=== PATIENT | female | born 2000 | race Caucasian/White ===

== ENCOUNTER 2022-11-22 18:47 | Emergency (ER) | payer BC, SELFPAY ==
[2022-11-22 19:10] VITALS: BP 121/82; PULSE 127; RESP 20; TEMP 37.3; O2SAT 99
--- NOTE | 2022-11-22 19:30 | ED.GENADULT ---
HPI - General Adult General Chief complaint: Abdominal Pain Stated complaint: Left Earache and Abdominal Pain Time Seen by Provider: 11/22/22 19:30 Source: patient, RN notes reviewed and old records reviewed Mode of arrival: ambulatory Limitations: no limitations History of Present Illness HPI narrative: 22 YEAR OLD FEMALE WHO PRESENTS TO [facility] WITH COMPLAINTS OF fever on Wednesday and some abdominal discomfort. Patient reports that she she got a flu shot on and is attributing possible side effects from flu shot. Patient reports that does have a history of UTI's but denies any burning or pain with her urination,or any nausea or vomiting. Patient reports that she had small pustule in her left ear canals and it popped and drained no further problems denies ear pain. Patient is very anxious. Reports that she took Ibuprofen 1 hour ago. MD complaint: fever and abdominal discomfort Onset (ago): day(s) (2) Severity: mild Treatments prior to arrival: NSAID Related Data Home Medications Medication Instructions Recorded Confirmed bupropion HCl 150 mg tablet,12 hr 150 mg PO 09/09/22 sustained-release ferrous sulfate 325 mg (65 mg 325 mg PO 09/09/22 iron) tablet (FeroSul) glycopyrrolate 2 mg tablet 2 mg PO 09/09/22 venlafaxine 75 mg tablet 75 mg PO 09/09/22 etonogestrel 68 mg subdermal 1 implant subdermal ONCE 09/23/22 implant (Nexplanon) Allergies Allergy/AdvReac Type Severity Reaction Status Date / Time latex Allergy Mild Rash Verified 11/22/22 18:58 Review of Systems Review of Systems: CONSTITUTIONAL: Reports low grade fever, chills, or sweats. EYES: Denies visual changes, redness, or discharge. ENT: Denies rhinorrhea, congestion, sore throat, or otalgia. CARDIOVASCULAR: Denies chest pain, palpitations, or edema. RESPIRATORY: Denies cough or dyspnea. GASTROINTESTINAL: Reports abdominal discomfort, no nausea, vomiting, or diarrhea. GENITOURINARY: Denies dysuria or hematuria. SKIN: Denies rash or itching. MUSCULOSKELETAL: Denies back pain, joint pain, or myalgia. NEUROLOGIC: Denies headache, numbness, or weakness. PSYCHIATRIC: Positive for anxiety or depression. All systems reviewed & are unremarkable except as noted in HPI and below [facility] Past Medical History Medical History (Updated 11/25/22 @ 10:30 by Rima Philip NP) Anxiety Depression Encounter for surveillance of other contraceptives Urinary tract infection Surgical History Surgical History (Updated 09/23/22 @ 15:35 by Fide Alamo CMA) H/O gynecological procedure Nexplanon insertion 09/23/22 H/O wisdom tooth extraction Family History Family History Mother Breast cancer Grandparent Breast cancer Carcinoma of colon Diabetes mellitus Father Hypertension Social History Social History Smoking status: Never smoker Alcohol intake: current Alcohol use details: rarely Substance use: never Lack of Transportation: No Lack of Food: Never True Current Housing: I Have Housing Concerned About Future Housing: No Difficulty Paying Gas/Electric Bills: No Difficulty Paying for Meds: No Currently Unemployed: No Education: High School Diploma/GED Difficulty w/ Childcare or Family Care: No Living arrangements: other Additional living arrangements comments: boyfriend Occupation/Education: occupation Gender identity (if verbalized by the patient): Female Sexual Orientation (if Verbalized by the Patient): Bisexual Comments At time of signature, agree with nursing past medical, surgical, social and family history. There is no relevant family history pertinent to the presenting complaint Exam Narrative: GENERAL: Well-appearing, well-nourished, and in no acute distress. HEAD: Normocephalic, atraumatic. EYES: PERRLA and EOMI. ENT: Nares clear, no rhinorrhea or epistaxis. Mucous membr
== END 2022-11-22 19:55 | disposition home or self-care (01) ==
PROVIDERS: Emergency Provider Registered Nurse; PCP Nurse Practitioner Family
DX: N39.0 Urinary tract infection, site not specified (principal)
CPT/HCPCS: 81003; 81025; 87077; 87086; 87186; 99213; G0463

== ENCOUNTER 2023-08-19 13:43 | Outpatient (CLI) | payer BC, SELFPAY ==
--- NOTE | ~2023-08-19 | US_ITS ---
EXAMINATION: US transvaginal DATE: 08/19/2023 14:10 INDICATION: DYSMENORRHEA TECHNIQUE: Multiple and endovaginal sonographic images of the pelvis were obtained. COMPARISON: None. FINDINGS: Uterus: 7.0 x 2.4 x 3.2 cm. Trace fluid in the endocervical canal. Endometrial complex measures 2 mm. Right Ovary: 2.7 x 2.3 x 1.9 cm. Vascular flow is present. No adnexal mass Left Ovary: 3.4 x 2.4 x 2.7 cm. Vascular flow is present. 1.3 cm simple cyst or dominant follicle. There is no free fluid in the pelvis. IMPRESSION: Normal pelvic sonogram findings. Reviewed, dictated and finalized at location K.
== END 2023-08-19 13:44 ==
PROVIDERS: PCP Nurse Practitioner Family; Visit Provider Nurse Practitioner Family
DX: N94.6 Dysmenorrhea, unspecified (principal); N94.10 Unspecified dyspareunia
CPT/HCPCS: 76830